=== PATIENT | female | born 1955 | race Caucasian/White ===

== ENCOUNTER 2017-06-09 05:39 | Outpatient (CLI) | payer BC ==
[~2017-06-09] VITALS: Ht 165.1 cm; Wt 60.3 kg
[~2017-06-09 05:39] MED LIST: E400C PO; ESTR0.5T PO; ESTR1.256 PO; FOLI1TAB6 PO; HYDR-3583 PO; LVT.1T PO; NAPR220C11 PO; OMG1KC PO
== END 2017-06-09 12:30 ==
LOC: PREOP 05:39
PROVIDERS: ATTEND Internal Medicine
DX: Z01.818 Encounter for other preprocedural examination (principal); Z12.11 Encounter for screening for malignant neoplasm of colon; Z80.0 Family history of malignant neoplasm of digestive organs

== ENCOUNTER 2017-06-11 07:50 | Day surgery (SDC) | payer BC ==
--- NOTE | 2017-06-10 12:39 | HISTORY AND PHYSICAL ---
DATE OF ADMISSION: 06/11/2017 DICTATING PHYSICIAN: Dr. Ordaz REFERRING PHYSICIAN: Dr. Yuan Ms. Grant is a 61-year-old white female referred for screening colonoscopy. She is deemed to be of higher than average risk as her mother was diagnosed with colon cancer in her early 70s and succumbed to the disease. Her last colonoscopy was nearly 5 years ago and did not reveal any evidence for neoplasia at that time. She denies any bowel habit change and reports no bright red blood per rectum or melena. PAST SURGICAL HISTORY: 1. Rectocele and cystocele repair in 2007. 2. Laparoscopic cholecystectomy in 2010. FAMILY HISTORY: Most notably her mother diagnosed with colon cancer in her early 70s and succumbed to the disease. She is not aware of any other family history for colon polyps or colon cancer. She does have a sibling as I recall, who has had polyps, at least one sister. PAST MEDICAL HISTORY: Significant for: 1. 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 2. She is on postmenopausal estrogen replacement and is on no other prescription medication. She occasionally will take Aleve for muscle aches and pains, OTC and does not take aspirin. PHYSICAL EXAMINATION: Reveals a normal weight white female, appears to be in no acute distress. VITAL SIGNS: Blood pressure 133/74, heart rate 72 and regular. Respirations 16 nonlabored. HEENT: Oral cavity shows a Mallampati class II configuration. No pharyngeal erythema is noted. No exudates are noted. CHEST: Clear. CV: Reveals a regular rate and rhythm without murmur, S3 or S4. ABDOMEN: Soft, supple without masses, organomegaly or tenderness. Bowel sounds are present. EXTREMITIES: Reveal no cyanosis, clubbing, or edema. ASSESSMENT: The patient was set-up for a screening colonoscopy on 06/11. She is deemed to be of higher than average risk due to a family history of first degree relative, her mother being diagnosed with colon cancer in her early 70s. It was quite advanced and the cause of her . Malina reports that she did have difficulty with keeping her prep down so we discussed splitting the dose using Rubio-prep kit and taking Zofran 4 mg half an hour before each dose. She was set-up for 06/11 and will abstain from Aleve for at least 5 days prior to the procedure. I thank you for the referral of this pleasant lady. Sincerely, Job ID: [id number] Dictated Date: 05/25/2017 09:55:00 Deputy Director Of Public Works Date: 05/25/2017 11:28:46/latrice KUMARI
[~2017-06-11] VITALS: Ht 165.1 cm; Wt 60.3 kg
[2017-06-11] MEDS ORDERED: 1/2 NS IV SOLUTION 1,000 ML IV ONE (08:13)
[2017-06-11] MEDS ORDERED: 1/2 NS IV SOLUTION 1,000 ML IV PRN (08:15)
[2017-06-11] MEDS: fentaNYL INJECTION 100 MCG/2 ML AMP IVP PRN ×5 (08:37→09:40)
[2017-06-11] MEDS: MIDAZOLAM 2 MG/2 ML (VERSED) VIAL IVP PRN ×4 (08:39→09:35)
[2017-06-11 08:40] VITALS: BP 138/65
[2017-06-11] MEDS: LIDOCAINE JELLY 2% (XYLOCAINE) 5 ML TUBE MM PRN ×2 (08:40→09:38)
[2017-06-11] MEDS ORDERED: MIDAZOLAM 2 MG/2 ML (VERSED) VIAL ONE ×2 (08:59→09:00)
[2017-06-11] MEDS ORDERED: LIDOCAINE JELLY 2% (XYLOCAINE) 5 ML TUBE ONE (09:00)
[2017-06-11] MEDS ORDERED: fentaNYL INJECTION 100 MCG/2 ML AMP ONE (09:00)
[2017-06-11] MEDS ORDERED: ONDANSETRON 4 MG/2 ML (SDV) Z0FRAN IVP ONE (09:00)
--- NOTE | 2017-06-11 09:33 | Pre-Op Note & Conscious Sedat ---
Pre-Operative Progress Note H&P Reviewed The H&P was reviewed, patient examined and no changes noted. Date H&P Reviewed: Jun 11, 2017 Time H&P Reviewed: 08:45 Conscious Sedation Pre-Proced ASA Class: 1 Airway Mallampati Classification: ([place] appropriate class) I. II. III, IV Lungs Heart ASA score ASA 1: a normal healthy patient ASA 2: a patient with a mild systemic disease (mid diabetes, controlled hypertension, obesity ASA 3: a patient with a severe systemic disease that limits activity (angina , COPD, prior Myocardial infarction) ASA 4: a patient with an incapacitating disease that is a constant threat to life (CHF, renal failure) ASA 5: a moribund patient not expected to survive 24 hrs. (ruptured aneurysm) ASA 6: a declared brain patient whose organs are being harvested. For emergent operations, add the letter E after the classification Grade 2 Sedation Plan: Analgesia, Amnesia, Plan communicated to team members, Discussed options with patient/fam, Discussed risks with patient/fam Note The patient is an appropriate candidate to undergo the planned procedure, sedation, and anesthesia. The patient immediately re-assessed prior to indication. BUSTER BLACKWELL MD Jun 11, 2017 09:33
[2017-06-11 10:10] VITALS: BP 116/56
[2017-06-11 10:45] VITALS: BP 117/69
[2017-06-11 10:50] VITALS: BP 117/69
--- NOTE | 2017-06-11 12:31 | OPERATIVE REPORT ---
DATE OF SERVICE: INDICATION FOR THE PROCEDURE: Screening colonoscopy, a family history of colon cancer, index case being the patient's mother diagnosed at the age of 70. The patient was placed in the left lateral decubitus position. Prior to undergoing colonoscopy digital rectal evaluation was performed. Anal sphincter tone was normal. The perianal reflex was intact. The colonoscope was then inserted into the rectum and under direct visualization advanced to the cecum. The cecum was identified by identification of the ileocecal valve, cecal strap and the appendiceal orifice. FINDINGS: There was no evidence for internal or external hemorrhoids. Present in the mid rectum was a diminutive 1 mm sessile polyp. It was photographed and biopsied and ablated with no subsequent blood loss. The remainder of the rectum was unremarkable. The sigmoid colon was normal as was the descending colon, splenic flexure, transverse colon, hepatic flexure, ascending colon and cecum. ASSESSMENT: Diminutive hyperplastic appearing polyp was removed from the mid rectum with no blood loss via hot forceps. As long as there are no surprises on histopathology due to family history, would advocate repeat early screening colonoscopy in 5 years. I thank you for the referral of this pleasant lady. Job ID: [id number] DocumentID: [id number] Dictated Date: 06/11/2017 11:47:26 Logging Crew Supervisor Date: 06/11/2017 12:30:50 Dictated By: BUSTER BLACKWELL MD
== END 2017-06-11 11:30 | disposition home or self-care (01) ==
LOC: ENDO 07:50
PROVIDERS: ATTEND Internal Medicine
DX: Z12.11 Encounter for screening for malignant neoplasm of colon (principal); K62.1 Rectal polyp; Z80.0 Family history of malignant neoplasm of digestive organs

== ENCOUNTER → 2017-10-15 | Outpatient (CLI) | payer BC | LOC: RAD 10:35 | PROVIDERS: ATTEND Obstetrics & Gynecology | DX: Z12.31 Encounter for screening mammogram for malignant neoplasm of breast (principal) ==

== ENCOUNTER → 2018-10-17 | Outpatient (CLI) | payer MEDICARE ==
--- NOTE | 2018-10-17 20:47 | Diagnostic Imaging Report ---
INDICATION: Screening. EXAMINATION: Digital mammogram bilateral screening with 3D tomosynthesis. This study was compared to prior exams of 10/15/2017, 10/14/2016 and 08/23/2015. At this time, there are no current complaints. The current study was also evaluated with a Computer Aided Detection (CAD) system. FINDINGS: The fibroglandular tissue in both breasts is heterogeneously dense. This does limit the sensitivity of this exam. Overall, there does not appear to have been any significant change when compared to the prior study. No primary or secondary sign of malignancy is noted. IMPRESSION: There is no radiographic evidence for malignancy. ACR BI-RADS Category 1: Negative. Result letter will be mailed to the patient. Note: At least 10% of breast cancer is not imaged by mammography. Dictated by: Dictated on workstation # [id number]
== END ==
LOC: RAD 09:42
PROVIDERS: ATTEND Obstetrics & Gynecology
DX: Z12.31 Encounter for screening mammogram for malignant neoplasm of breast (principal)
CPT/HCPCS: 77067

== ENCOUNTER → 2019-02-07 | Outpatient (CLI) | payer MEDICARE ==
--- NOTE | 2019-02-07 12:04 | Diagnostic Imaging Report ---
INDICATION: Right calf swelling, pain. Edema. TECHNIQUE: Grayscale with color-flow and Doppler waveform evaluation of the right lower extremity deep venous system. CORRELATION STUDY: None FINDINGS: Color and grayscale sonographic images demonstrate no intraluminal defect within the visualized portion of the common femoral, superficial femoral and/or popliteal veins to suggest thrombus formation. These vessels demonstrate normal response to compression and augmentation. No soft tissue fluid collection. IMPRESSION: 1. Negative for deep venous thrombosis of the right leg. Dictated by: Dictated on workstation # [id number]
== END ==
LOC: RAD 11:18
PROVIDERS: ATTEND Obstetrics & Gynecology
DX: R60.0 Localized edema (principal)

== ENCOUNTER → 2019-05-10 | Outpatient (CLI) | payer MEDICARE ==
[~2019-05-10] MED LIST changes: +HOLD METFORMIN - RECEIVED CONTRAST 20 ML VIAL IV SCH; +IOHEXOL 350 MG/ML 100 ML (OMNIPAQUE 350) VIAL IV ONE; +NS 100 ML (IVPB) BAG IV ONE
[2019-05-10 15:17] LABS: ALANINE AMINOTRANSFERASE 14 U/L (0-55); ALKALINE PHOSPHATASE 55 U/L (40-136); BILIRUBIN,TOTAL 0.4 MG/DL (0.1-1.0); BUN/CREATININE RATIO 10; CALCIUM 9.3 MG/DL (8.5-10.1); CARBON DIOXIDE 25 MMOL/L (21-32); CHLORIDE 105 MMOL/L (98-107); CREATININE SERUM 0.87 MG/DL (0.60-1.30); GFR ESTIMATED > 60; GLUCOSE 108 MG/DL (70-105); POTASSIUM 3.9 MMOL/L (3.6-5.0); SODIUM 140 MMOL/L (135-145); TOTAL PROTEIN 7.2 GM/DL (6.4-8.2)
--- NOTE | 2019-05-10 16:00 | Diagnostic Imaging Report ---
INDICATION: Right lower quadrant pain and bacteria in urine. TECHNIQUE: The CT abdomen and pelvis was obtained with IV contrast bolus. COMPARISON: There is no prior study for comparison. FINDINGS: The visualized portions of the lung bases show dependent atelectatic changes. There is no consolidation or pleural fluid. There is no free intraperitoneal air. There is mild levoscoliotic change of the lumbar spine. The liver shows no mass lesion. The patient has had previous cholecystectomy. The spleen is not enlarged and shows no focal lesions. The adrenals and pancreas appear normal. The kidneys bilaterally show no hydronephrosis. The kidneys show symmetric enhancement with no overt pyelonephritis. There are no overt renal calculi. There is no retroperitoneal mass or adenopathy. There is no ascites or abnormal fluid collection. The visualized bowel loops appear unremarkable. There is no pelvic mass. IMPRESSION: No acute abnormality is detected. The patient has had previous cholecystectomy. There is no renal stone, hydronephrosis, or overt pyelonephritis. The urinary bladder appears grossly unremarkable. Dictated by: Dictated on workstation # [id number]
== END ==
LOC: RAD 14:45
PROVIDERS: ATTEND Obstetrics & Gynecology
DX: R10.31 Right lower quadrant pain (principal); R82.71 Bacteriuria; Z90.49 Acquired absence of other specified parts of digestive tract
CPT/HCPCS: 36415; 74177; 80053

== ENCOUNTER → 2019-10-19 | Outpatient (CLI) | payer MEDICARE ==
[~2019-10-19] MED LIST changes: -HOLD METFORMIN - RECEIVED CONTRAST 20 ML VIAL IV SCH; -IOHEXOL 350 MG/ML 100 ML (OMNIPAQUE 350) VIAL IV ONE; -NS 100 ML (IVPB) BAG IV ONE
--- NOTE | 2019-10-20 08:54 | Diagnostic Imaging Report ---
Digital mammogram. Indication: Bilateral screening The study was compared to the prior exam of 10/17/2018 and 10/15/2017 and 10/14/2016. At this time there are no current complaints. The current study was also evaluated with a Computer Aided Detection (CAD) system. FINDINGS: The fibroglandular tissue in both breasts is heterogeneously dense. This does limit the sensitivity of this exam. Overall, there does not appear to have been any significant change when compared to the prior study. No primary or secondary sign of malignancy is noted. IMPRESSION: There is no radiographic evidence for malignancy. ACR BI-RADS Category 1: Negative. Result letter will be mailed to the patient. Note: At least 10% of breast cancer is not imaged by mammography. Dictated by: Dictated on workstation # [id number]
== END ==
LOC: RAD 10:08
PROVIDERS: ATTEND Obstetrics & Gynecology
DX: Z12.31 Encounter for screening mammogram for malignant neoplasm of breast (principal)
CPT/HCPCS: 77067

== ENCOUNTER → 2020-10-21 | Outpatient (CLI) | payer MEDICARE ==
--- NOTE | 2020-10-21 20:04 | Diagnostic Imaging Report ---
Digital mammogram bilateral screening This study was compared to the prior exams of 10/19/2019, 10/17/2018 and 10/15/2017. At this time, there are no current complaints. The current study was also evaluated with a Computer Aided Detection (CAD) system. FINDINGS: The fibroglandular tissue in both breasts is heterogeneously dense. This does limit the sensitivity of this exam. Overall, there does not appear to have been any significant change when compared to the prior study. No primary or secondary sign of malignancy is noted. IMPRESSION: There is no radiographic evidence for malignancy. ACR BI-RADS Category 1: Negative. Result letter will be mailed to the patient. Note: At least 10% of breast cancer is not imaged by mammography. Dictated by: Dictated on workstation # [id number]
== END ==
LOC: RAD 09:30
PROVIDERS: ATTEND Obstetrics & Gynecology
DX: Z12.31 Encounter for screening mammogram for malignant neoplasm of breast (principal)
CPT/HCPCS: 77063; 77067

== ENCOUNTER → 2021-10-22 | Outpatient (CLI) | payer MEDICARE ==
--- NOTE | 2021-10-22 13:18 | Diagnostic Imaging Report ---
Indication: Routine screening. Comparison is made with prior mammogram from 10/21/2020 and 10/19/2019. 2-D and 3-D bilateral screening mammography was performed with CAD. Both breasts are heterogeneously dense, limiting the sensitivity of mammography. Scattered benign calcifications are noted in both breasts. No mass or malignant-appearing microcalcifications are seen. Axillae are unremarkable. IMPRESSION: BI-RADS Category 2 No mammographic features suspicious for malignancy are identified. ACR BI-RADS Category 2: Benign findings. Result letter will be mailed to the patient. Note: At least 10% of breast cancer is not imaged by mammography. Dictated by: Dictated on workstation # [id number]
== END ==
LOC: RAD 09:45
PROVIDERS: ATTEND Nurse Practitioner Family
DX: Z12.31 Encounter for screening mammogram for malignant neoplasm of breast (principal)
CPT/HCPCS: 77063; 77067

== ENCOUNTER 2021-11-06 09:58 | Outpatient (RCR) | payer MEDICARE | END 2021-11-07 | disposition home or self-care (01) | PROVIDERS: ATTEND Nurse Practitioner Family | DX: M54.16 Radiculopathy, lumbar region (principal) ==

== ENCOUNTER → 2022-10-27 | Outpatient (CLI) | payer MEDICARE ==
--- NOTE | 2022-10-27 15:42 | Diagnostic Imaging Report ---
INDICATION: Routine screening. COMPARISON: 10/22/2021 and 10/21/2020. TECHNIQUE: 2D and 3D bilateral screening mammography was performed with CAD. FINDINGS: Both breasts are heterogeneously dense, limiting the sensitivity of mammography. There are scattered benign calcifications. No mass or malignant-appearing microcalcifications are seen. The axillae are unremarkable. IMPRESSION: No mammographic features suspicious for malignancy are identified. ACR BI-RADS Category 2: Benign findings. Result letter will be mailed to the patient. Note: At least 10% of breast cancer is not imaged by mammography. Dictated by: Dictated on workstation # [id number]
== END ==
LOC: RAD 11:15
PROVIDERS: ATTEND Internal Medicine
DX: Z12.31 Encounter for screening mammogram for malignant neoplasm of breast (principal)
CPT/HCPCS: 77063; 77067